=== PATIENT | female | born 1955 | race American Indian/Alaskan Native ===

== ENCOUNTER 2017-04-13 14:07 | Emergency (ER) | payer OTHER ==
[2017-04-13] MEDS ORDERED: TYLENOL PO ONE (14:37)
[2017-04-13 15:03] LABS: Basophils % (Auto) 0.8 % (0.0-1.8); Eosinophils % (Auto) 4.4 % (0.0-4.3); Hematocrit 47.4 % (30.3-42.9); Hemoglobin 15.8 gm/dl (10.1-14.3); Mean Corpuscular HGB Conc 33 % (30-34); Mean Corpuscular Hemoglobin 30 pg (28-32); Mean Corpuscular Volume 88 fl (79-97); Platelet Count 250 K/mm3 (140-440); Red Blood Count 5.36 M/mm3 (3.65-5.03); Red Cell Distribution Width 13.4 % (13.2-15.2); White Blood Count 9.6 K/mm3 (4.5-11.0)
[2017-04-13 15:21] LABS: Anion Gap 14 mmol/L; BUN/Creatinine Ratio 14.28; Blood Urea Nitrogen 10 mg/dL (7-17); Calcium 9.8 mg/dL (8.4-10.2); Carbon Dioxide 30 mmol/L (22-30); Chloride 100.8 mmol/L (98-107); Glucose 106 mg/dL (65-100); Potassium 4.3 mmol/L (3.6-5.0); Sodium 140 mmol/L (137-145)
--- NOTE | 2017-04-13 18:21 | Cat Scan Report ---
FINAL REPORT EXAM: CT HEAD/BRAIN WO CON HISTORY: severe left side headache TECHNIQUE: Standard unenhanced CT of the head at 5.0 millimeter axial increments PRIORS: None. FINDINGS: The ventricular system is normal in size and configuration. There is no evidence for parenchymal volume loss. There is no evidence for mass lesion, mass effect, midline shift, acute intracranial hemorrhage, or acute ischemia/ infarction. Visualized paranasal sinuses demonstrates mucosal thickening in the right maxillary and several bilateral ethmoid air cells. IMPRESSION: Negative CT of the head. No acute intracranial process noted. Mild chronic sinusitis in the right maxillary and ethmoid air cells.
--- NOTE | 2017-04-13 23:56 | Emergency Department Report ---
HPI - General Chief Complaint: Headache Time Seen by Provider: 04/13/17 23:39 - HPI HPI: Room 9 The patient is a 62-year-old female presenting with a chief complaint of headache. The patient states she awakened this morning at 02:00 with severe headache in the left and poor region. Patient describes the headache as pounding in nature. The patient went to see her primary physician (Dr. Bernice walls) 1 turn sent the patient to the ED for a CAT scan and evaluation. Patient denies nausea vomiting or preceding trauma. Patient denies eye pain or blurred vision. The patient states her headache was initially a 10/10 but has improved with 3-4/10 currently. Location: Head Duration: Constant since 02:00 Quality: Throbbing Severity: 3-4/10 Modifying factors: [see above] Context: [see above] Mode of transportation: Public transportation/walking ED Past Medical Hx - Past Medical History Previous Medical History?: No Hx Asthma: Yes - Surgical History Past Surgical History?: No Additional Surgical History: Rhinoplasty, bilateral tubal ligation - Family History Family history: no significant - Social History Smoking Status: Never Smoker Substance Use Type: None - Medications Home Medications: Home Medications Medication Instructions Recorded Confirmed Last Taken Type Butalbit/Acetamin/Caff/Codeine 1 cap PO Q8HR PRN #14 cap 04/13/17 Unknown Rx [Fioricet/Codeine [id number]] ED Review of Systems ROS: Stated complaint: SEVERE L SIDE HEADACHE/PAIN Other details as noted in HPI Comment: All other systems reviewed and negative Constitutional: denies: chills, fever Eyes: denies: eye pain, eye discharge, vision change ENT: denies: ear pain, throat pain Respiratory: denies: cough, shortness of breath, wheezing Cardiovascular: denies: chest pain, palpitations Endocrine: no symptoms reported Gastrointestinal: denies: abdominal pain, nausea, diarrhea Genitourinary: denies: urgency, dysuria, discharge Musculoskeletal: denies: back pain, joint swelling, arthralgia Skin: denies: rash, lesions Neurological: headache Psychiatric: denies: anxiety, depression Hematological/Lymphatic: denies: easy bleeding, easy bruising Physical Exam - Physical Exam Vital Signs: Vital Signs 04/13/17 04/13/17 14:33 23:43 Temperature 98.4 F 98.8 F Pulse Rate 88 89 Respiratory 20 19 Rate Blood Pressure 147/96 Blood Pressure 183/101 [Left] O2 Sat by Pulse 100 99 Oximetry Physical Exam: GENERAL: The patient is well-developed well-nourished female lying on stretcher not appear to be in acute distress. [] HEENT: Normocephalic. Atraumatic. Extraocular motions are intact. Patient has moist mucous membranes. There is no tenderness to palpation along the left temporal artery NECK: Supple. Trachea midline. There are no meningitic signs CHEST/LUNGS: Clear to auscultation. There is no respiratory distress noted. HEART/CARDIOVASCULAR: Regular. There is no tachycardia. There is no gallop rub or murmur. ABDOMEN: Abdomen is soft, nontender. Patient has normal bowel sounds. There is no abdominal distention. SKIN: There is no rash. There is no edema. There is no diaphoresis. NEURO: The patient is awake, alert, and oriented. The patient is cooperative. The patient has no focal neurologic deficits. The patient has normal speech and gait. Radial nerves II through XII grossly intact, no drift, net developer contract 5+/5 bilaterally. Negative Romberg MUSCULOSKELETAL: There is no evidence of acute injury. ED Course Vital Signs 04/13/17 04/13/17 14:33 23:43 Temperature 98.4 F 98.8 F Pulse Rate 88 89 Respiratory 20 19 Rate Blood Pressure 147/96 Blood Pressure 183/101 [Left] O2 Sat by Pulse 100 99 Oximetry ED Medical Decision Making - Lab Data Result diagrams: 04/13/17 14:43 04/13/17 14:43 Laboratory Tests 04/13/17 04/13/17 04/13/17 14:43 14:43 14:43 WBC 9.6 RBC 5.36 H Hgb 15.8 H Hct 47.4 H MCV 88 MCH 30 MCHC 33 RDW 13.4 Plt Count 250 Lymph % (Auto) 28.7 [place] % (Auto) 8.3 H Eos % (Auto) 4.4 H Baso % (Auto) 0.8 Lymph # 2.8 [place] # 0.8 Eos # 0.4 Baso # 0.1 Seg Neutrophils % 57.8 Seg Neutrophils # 5.5 ESR 1 Sodium 140 Potassium 4.3 Chloride 100.8 Carbon Dioxide 30 Anion Gap 14 BUN 10 Creatinine 0.7 Estimated GFR > 60 BUN/Creatinine Ratio 14.28 Glucose 106 H Calcium 9.8 - Radiology Data Radiology results: image reviewed (CT head) interpreted by me: CT head (read by radiologist)-negative CT of the head. No acute intracranial process noted. - Differential Diagnosis ICH, intracranial mass, temporal arteritis, migraine Critical care attestation.: If time is entered above; I have spent that time in minutes in the direct care of this critically ill patient, excluding procedure time. ED Disposition Clinical Impression: Headache Disposition: DISCHARGED TO HOME OR SELFCARE Is pt being admited?: No Does the pt Need Aspirin: No Condition: Stable Instructions: Acute Headache (ED) Additional Instructions: Return to the emergency department immediately should you develop worsening symptoms, fever, inability to tolerate food or liquid or any other concerns. Prescriptions: Butalbit/Acetamin/Caff/Codeine [Fioricet/Codeine [id number]] 1 cap PO Q8HR PRN #14 cap PRN Reason: Headache Referrals: MIRTA MARIA MD [Primary Care Provider] - 3-5 Days GLENROY MULLEN MD [Staff Physician] - [facility] (Dr Mullen is a neurologist. Please follow with him for further evaluation of her headache) Time of Disposition: 00:25
[2017-04-14 01:26] VITALS: BP 175/94
== END 2017-04-14 01:25 | disposition home or self-care (01) ==
LOC: ED 14:07
DX: R51 Headache (principal); J45.909 Unspecified asthma, uncomplicated
CPT/HCPCS: 36415; 70450; 80048; 85025; 85652; 99284

== ENCOUNTER 2018-02-12 14:22 | Inpatient (IN) | payer OTHER ==
--- NOTE | 2018-02-12 15:10 | Emergency Department Report ---
HPI - General Time Seen by Provider: 02/12/18 14:38 - HPI HPI: 63-year-old female presents to the emergency department via EMS from a nearby pharmacy with complaint of shortness of breath and severe tachycardia. The patient was driving home when she suddenly began feeling acutely short of breath and lightheaded. She felt like she was going to pass out but was able to get to the local [facility] parking lot where she called EMS. EMS found her to be in some type of tachyarrhythmia. They tried 6 monos of adenosine without any relief just prior to arriving at [facility]. Patient has a history of COPD but is not oxygen dependent, non-insulin- dependent diabetes, hypertension. Her fur cleaner also serves as her primary care physician and is a Dr. Freed. She denies any tobacco or illicit drug use or abuse. No recent travel or sick contacts at home. ED Past Medical Hx - Past Medical History Previous Medical History?: Yes Hx Asthma: Yes - Surgical History Past Surgical History?: Yes Additional Surgical History: Rhinoplasty, bilateral tubal ligation - Social History Smoking Status: Never Smoker - Medications Home Medications: Home Medications Medication Instructions Recorded Confirmed Last Taken Type Butalbit/Acetamin/Caff/Codeine 1 cap PO Q8HR PRN #14 cap 04/13/17 Unknown Rx [Fioricet/Codeine [id number]] ED Review of Systems ROS: Stated complaint: HEART RATE Other details as noted in HPI Comment: All other systems reviewed and negative Constitutional: denies: chills, fever Eyes: denies: eye pain, eye discharge, vision change ENT: denies: ear pain, throat pain Respiratory: shortness of breath, wheezing Cardiovascular: chest pain, palpitations Gastrointestinal: denies: abdominal pain, nausea, diarrhea Genitourinary: denies: urgency, dysuria, discharge Musculoskeletal: denies: back pain, joint swelling, arthralgia Skin: denies: rash, lesions Neurological: denies: headache, weakness, paresthesias Physical Exam - Physical Exam Vital Signs: Vital Signs 02/12/18 02/12/18 02/12/18 14:30 14:34 14:45 Pulse Rate 200 H 118 H Respiratory 24 24 19 Rate Blood Pressure 121/74 O2 Sat by Pulse 88 Oximetry Physical Exam: GENERAL: Patient is ill-appearing. HENT: Normocephalic. Atraumatic. Patient has moist mucous membranes. EYES: Extraocular motions are intact. Pupils equal reactive to light bilaterally. NECK: Supple. Trachea is midline. CHEST/LUNGS: There is some mild wheezing throughout the chest. The patient has tachypnea but no accessory muscle use. There is no respiratory distress noted. HEART/CARDIOVASCULAR: Regular. There is severe tachycardia. There is no murmur. ABDOMEN: Abdomen is soft, nontender. Patient has normal bowel sounds. There is no abdominal distention. SKIN: Skin is warm and dry. NEURO: The patient is awake, alert, and oriented. The patient is cooperative. The patient has no focal neurologic deficits. The patient has normal speech. MUSCULOSKELETAL: There is no tenderness or deformity. There is no limitation range of motion. There is no evidence of acute injury. ED Course Vital Signs 02/12/18 02/12/18 02/12/18 14:30 14:34 14:45 Pulse Rate 200 H 118 H Respiratory 24 24 19 Rate Blood Pressure 121/74 O2 Sat by Pulse 88 Oximetry - Consultations Consultation #1: 02/12/18 15:[address] Calvert, fur cleaner for [facility], who is aware of the patient's presentation for SVT and has agreed to see the patient as a consultation. ED Medical Decision Making - Lab Data Result diagrams: 02/12/18 14:45 02/12/18 14:45 - EKG Data -: EKG Interpreted by Me EKG shows normal: sinus rhythm (SVT with PVCs), axis, intervals, QRS complexes, ST-T waves (there is some ST depression throughout the majority of the leads concerning for some ischemia) Rate: tachycardia (191 bpm) - EKG Data When compared to previous EKG there are: previous EKG unavailable Interpretation: other (SVT at 191 bpm, normal axis, normal intervals, some ST depressions diffusely) Repeat EKG after vagal maneuvers show sinus tachycardia at 120 bpm, normal axis , PVCs and resolution of the ST depressions 02/12/18 15:09 - Radiology Data Radiology results: image reviewed interpreted by me: Chest x-ray shows some hyperinflation of the lungs and flattening of the diaphragms but no obvious pneumonia and no pleural effusions. - Medical Decision Making Patient presented with a tachyarrhythmia, shortness of breath and some lightheadedness. She was found to have a heart rate of about 200. It appeared more consistent with SVT than A. fib with RVR. We were going to attempt giving adenosine had to get a better IV in the upper arm. As the patient was stuck for peripheral IV placement, she appeared to bear down secondary to the pain and acted as a vagal maneuver and the patient's heart rate went down to about 120-130. A repeat EKG at this time showed sinus tachycardia and there was resolution of the ST depressions and/or ischemic-appearing changes that I believe were secondary to the severe tachycardia. Chest x-ray did not show any acute process. Labs of this far been mostly unremarkable and do not show any etiology of her symptoms. Patient had some improvement in her condition after the rate control. Blood pressure came back up from the previous hypotension of systolic blood pressure of 87 when she was having the severe tachycardia. Patient is feeling slightly improved but still appears short of breath. First troponin negative. Negative d-dimer. Cardiology has been contacted. Patient has been presented to the hospitalist service, Dr Coronel, for possible admission. - Differential Diagnosis SVT, A-fib, MA, Hyperthyroid Critical Care Time: No Critical care attestation.: If time is entered above; I have spent that time in minutes in the direct care of this critically ill patient, excluding procedure time. ED Disposition Clinical Impression: SVT (supraventricular tachycardia), SOB (shortness of breath) Chest pain Qualifiers: Chest pain type: unspecified Qualified Code(s): R07.9 - Chest pain, unspecified COPD (chronic obstructive pulmonary disease) Qualifiers: COPD type: unspecified COPD Qualified Code(s): J44.9 - Chronic obstructive pulmonary disease, unspecified Disposition: OP ADMIT IP TO THIS HOSP Is pt being admited?: Yes Condition: Fair Instructions: Chest Pain (ED), Chronic Obstructive Pulmonary Disease (ED) Referrals: PRIMARY CARE, [Primary Care Provider] - 3-5 Days Time of Disposition: 16:02
[2018-02-12 15:15] LABS: Basophils % (Auto) 0.4 % (0.0-1.8); Eosinophils # (Auto) 0.2 K/mm3 (0.0-0.4); Eosinophils % (Auto) 2.9 % (0.0-4.3); Hematocrit 47.4 % (30.3-42.9); Hemoglobin 15.5 gm/dl (10.1-14.3); Lymphocytes # (Auto) 1.7 K/mm3 (1.2-5.4); Lymphocytes % (Auto) 20.7 % (13.4-35.0); Mean Corpuscular HGB Conc 33 % (30-34); Mean Corpuscular Hemoglobin 29 pg (28-32); Mean Corpuscular Volume 90 fl (79-97); Monocytes # (Auto) 0.6 K/mm3 (0.0-0.8); Monocytes % (Auto) 6.8 % (0.0-7.3); Platelet Count 238 K/mm3 (140-440); Red Blood Count 5.26 M/mm3 (3.65-5.03); Red Cell Distribution Width 13.5 % (13.2-15.2)
[2018-02-12 15:25] LABS: INR 0.93 (0.87-1.13)
--- NOTE | 2018-02-12 15:27 | XRay Report ---
AP CHEST: HISTORY: chest pain The lungs are hyperinflated but clear. No evidence for infiltrate, pleural effusion or pneumothorax. Normal heart and mediastinal structures. Normal bony thorax. IMPRESSION: Hyperinflated lungs. No acute process identified.
[2018-02-12 15:30] LABS: Alanine Aminotransferase 13 units/L (7-56); BUN/Creatinine Ratio 10; Blood Urea Nitrogen 10 mg/dL (7-17); Calcium 9.6 mg/dL (8.4-10.2); Hemolysis Index 16
--- NOTE | 2018-02-12 15:55 | Consultation ---
History of Present Illness Consult date: 02/12/18 Consult reason: arrhythmia History of present illness: The patient is a 63-year-old female known to our service who sees Dr. Freed. She has a history of asthma, diabetes, and stress cardiomyopathy. She was admitted to [facility] in October 2017 where her ejection fraction was 20-25% and her coronary arteries were normal on invasive angiography. 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 An echocardiogram in November 2017 demonstrated normalization of her LV function with an ejection fraction of 50-55%. There was mild to moderate mitral regurgitation. The patient presented to the emergency department with palpitations and was noted to be in supraventricular tachycardia. She was short of breath but states that she is chronically dyspneic and was not more so at this time. No chest pain diaphoresis or palpitations. While inserting an IV the patient converted to sinus tachycardia at a rate of 110 bpm. At the time of this evaluation she remains in sinus rhythm at 112 bpm and is in no distress. Past History Past Medical History: diabetes, other (asthma, stress cardiomyopathy) Past Surgical History: Other (rhinoplasty, tuboligation) Social history: denies: smoking, alcohol abuse Family history: hypertension Medications and Allergies Allergies Allergy/AdvReac Type Severity Reaction Status Date / Time latex Allergy Hives Verified 04/13/17 14:33 Penicillins Allergy Hives Verified 04/13/17 14:31 cephalexin monohydrate AdvReac Angioedema Verified 04/13/17 14:31 [From Keflex] Sulfa (Sulfonamide AdvReac Anaphylaxis Verified 04/13/17 14:31 Antibiotics) iv dye AdvReac Hives Uncoded 04/13/17 14:31 Home Medications Medication Instructions Recorded Confirmed Last Taken Type Aspirin [Aspirin EC] 81 mg PO DAILY 02/12/18 02/12/18 02/12/18 History AtorvaSTATin [Lipitor] 40 mg PO QHS 02/12/18 02/12/18 02/11/18 History Benzonatate [Tessalon Perles] 100 mg PO Q8HR 02/12/18 02/12/18 02/11/18 History Fluticasone/Salmeterol [Advair 1 each IH PRN 02/12/18 02/12/18 02/11/18 History 250-50 Diskus] Furosemide [Lasix TAB] 40 mg PO QDAY 02/12/18 02/12/18 02/11/18 History Potassium Chloride [K-Dur] 20 meq PO QDAY 02/12/18 02/12/18 02/11/18 History predniSONE [Deltasone] 40 mg PO QDAY 02/12/18 02/12/18 02/11/18 History Review of Systems Constitutional: no fever, no chills Eyes: bilateral: blurred vision (denies) Ears, nose, mouth and throat: no epistaxis Cardiovascular: no chest pain, no syncope Respiratory: no hemoptysis Gastrointestinal: no abdominal pain Genitourinary Female: no flank pain Musculoskeletal: no frequent falls Integumentary: no rash Neurological: no convulsions Psychiatric: no anxiety Endocrine: no cold intolerance, no heat intolerance Hematologic/Lymphatic: no easy bruising, no easy bleeding Allergic/Immunologic: no urticaria Physical Examination Vital Signs Pulse Resp 200 H 24 02/12/18 14:30 02/12/18 14:30 General appearance: no acute distress HEENT: Positive: PERRL, Normocephaly Neck: Positive: neck supple, Carotid Upstroke (2+ bilat). Negative: JVD/HJR, Bruit Cardiac: Positive: Reg Rate and Rhythm, Systolic Murmur (2/6 apical). Negative : S3 Lungs: Positive: clear to auscultation Neuro: Positive: Grossly Intact Abdomen: Positive: Soft. Negative: Tender Skin: Positive: Clear Musculoskeletal: Normal Range of Motion Extremities: Present: normal Results 02/12/18 14:45 02/12/18 14:45 Cardiac Enzymes 02/12/18 Range/Units 14:45 AST 16 (5-40) units/L Coagulation 02/12/18 Range/Units 14:45 PT 12.9 (12.2-14.9) Sec. INR 0.93 (0.87-1.13) CBC 02/12/18 Range/Units 14:45 WBC 8.3 (4.5-11.0) K/mm3 RBC 5.26 H (3.65-5.03) M/mm3 Hgb 15.5 H (10.1-14.3) gm/dl Hct 47.4 H (30.3-42.9) % Plt Count 238 (140-440) K/mm3 Lymph # 1.7 (1.2-5.4) K/mm3 [place] # 0.6 (0.0-0.8) K/mm3 Eos # 0.2 (0.0-0.4) K/mm3 Baso # 0.0 (0.0-0.1) K/mm3 Comprehensive Metabolic Panel 02/12/18 Range/Units 14:45 Sodium 141 (137-145) mmol/L Potassium 3.8 (3.6-5.0) mmol/L Chloride 102.2 (98-107) mmol/L Carbon Dioxide 24 (22-30) mmol/L BUN 10 (7-17) mg/dL Creatinine 1.0 (0.7-1.2) mg/dL Glucose 142 H (65-100) mg/dL Calcium 9.6 (8.4-10.2) mg/dL AST 16 (5-40) units/L ALT 13 (7-56) units/L Alkaline Phosphatase 85 (35-129) units/L Total Protein 6.4 (6.3-8.2) g/dL Albumin 4.0 (3.9-5) g/dL EKG interpretations - Telemetry EKG Rhythm: Sinus Tachycardia Assessment and Plan Supraventricular tachycardia which converted to sinus tachycardia. Patient in no distress at the present time. Initial set of cardiac enzymes is negative. The d-dimer was negative. A 12-lead electrocardiogram is pending. Patient has a history of diabetes and asthma. She is chronically but mildly short of breath which is not worse at this time. Agree with hospitalization for telemetry observation. Since she recently had an echocardiogram in November of this year which was essentially unremarkable I do not feel a repeat study is necessary. Will follow with you.
--- NOTE | 2018-02-12 18:00 | History and Physical Report ---
History of Present Illness Chief complaint: I felt short of breath, and my heart was beating fast History of present illness: 63 YO Female with Asthma, COPD, DM, HTN, Cardiomyopathy presents to ED for evaluation. Pt states that she experienced a sudden onset of shortness of breath , and rapid heart beat, as well as dizziness and lightheadedness. The patient states that she was driving home in her car when she experienced the aforementioned symptoms. [facility] Upon EMS arrival, the patient was found to have SVT and acute respiratory failure. Pt was treated with adenosine, and was transported to [facility] for further care and evaluation. Pt seen and evaluated in ED and found to have COPD exacerbation and acute respiratory failure. Cardiology consulted in ED. Pt treated with supportive care and admitted to telemetry. Pt denies fever, chills , CP, NVD, Trauma, unintentional weight loss, night sweats, bone pain, BRBPR, hematuria, skin rash, or bowel habit changes. Past History Past Medical History: COPD, diabetes, hypertension, other (asthma, stress cardiomyopathy) Past Surgical History: Other (Rhinoplasty, Tubal ligation') Social history: denies: smoking, alcohol abuse Family history: hypertension Medications and Allergies Allergies Allergy/AdvReac Type Severity Reaction Status Date / Time latex Allergy Hives Verified 04/13/17 14:33 Penicillins Allergy Hives Verified 04/13/17 14:31 cephalexin monohydrate AdvReac Angioedema Verified 04/13/17 14:31 [From Keflex] Sulfa (Sulfonamide AdvReac Anaphylaxis Verified 04/13/17 14:31 Antibiotics) iv dye AdvReac Hives Uncoded 04/13/17 14:31 Home Medications Medication Instructions Recorded Confirmed Last Taken Type Aspirin [Aspirin EC] 81 mg PO DAILY 02/12/18 02/12/18 02/12/18 History AtorvaSTATin [Lipitor] 40 mg PO QHS 02/12/18 02/12/18 02/11/18 History Benzonatate [Tessalon Perles] 100 mg PO Q8HR 02/12/18 02/12/18 02/11/18 History Fluticasone/Salmeterol [Advair 1 each IH PRN 02/12/18 02/12/18 02/11/18 History 250-50 Diskus] Furosemide [Lasix TAB] 40 mg PO QDAY 02/12/18 02/12/18 02/11/18 History Potassium Chloride [K-Dur] 20 meq PO QDAY 02/12/18 02/12/18 02/11/18 History predniSONE [Deltasone] 40 mg PO QDAY 02/12/18 02/12/18 02/11/18 History Review of Systems Constitutional: no weight loss, no weight gain, no fever, no chills Ears, nose, mouth and throat: no ear pain, no ear discharge, no tinnitis, no decreased hearing, no nose pain, no nasal congestion, no nasal discharge Breasts: no change in shape, no swelling, no mass Cardiovascular: palpitations, rapid/irregular heart beat, lightheadedness, shortness of breath, no chest pain, no edema, no syncope Respiratory: no cough, no cough with sputum, no excessive sputum, no hemoptysis Gastrointestinal: no nausea, no vomiting, no diarrhea, no constipation, no hematemesis Genitourinary Female: no pelvic pain, no flank pain, no menorrhagia, no dysuria , no urinary frequency, no urgency Rectal: no pain, no incontinence, no bleeding Musculoskeletal: no neck stiffness, no neck pain, no shooting arm pain, no arm numbness/tingling Integumentary: no rash, no pruritis, no redness, no sores, no wounds, no jaundice Neurological: no head injury, no transient paralysis, no paralysis, no weakness , no parathesias, no numbness, no tingling Psychiatric: no anxiety, no memory loss, no change in sleep habits, no sleep disturbances, no insomnia, no hypersomnia, no change in appetite, no change in libido Endocrine: no cold intolerance, no heat intolerance, no polyphagia, no excessive thirst, no polydipsia, no polyuria, no nocturia, no excessive sweating Hematologic/Lymphatic: no easy bruising, no easy bleeding, no lymphadenopathy, no lymphedema Allergic/Immunologic: no urticaria, no allergic rhinitis, no persistent infections, no anaphylaxis, no angioedema Exam - Constitutional Vitals: Temp Pulse Resp BP Pulse Ox 98.8 F 88 19 139/83 98 02/12/18 15:13 02/12/18 17:00 02/12/18 17:00 02/12/18 17:00 02/12/18 17:00 General appearance: Present: mild distress, cachectic - EENT Eyes: Present: PERRL ENT: hearing intact, clear oral mucosa - Neck Neck: Present: supple, normal ROM - Respiratory Respiratory effort: normal Respiratory: bilateral: diminished, rhonchi - Cardiovascular Rhythm: other (tachycardia) - Extremities Extremities: pulses symmetrical, No edema Peripheral Pulses: within normal limits - Abdominal General gastrointestinal: Present: soft, non-tender, non-distended, normal bowel sounds Female genitourinary: Present: normal - Integumentary Integumentary: Present: clear, warm, dry - Musculoskeletal Musculoskeletal: gait normal, strength equal bilaterally - Psychiatric Psychiatric: appropriate mood/affect, intact judgment & insight - Neurologic Neurologic: CNII-XII intact, moves all extremities Results - Labs CBC & Chem 7: 02/12/18 14:45 02/12/18 14:45 Labs: Abnormal lab results 02/12/18 02/12/18 Range/Units 14:45 14:45 RBC 5.26 H (3.65-5.03) M/mm3 Hgb 15.5 H (10.1-14.3) gm/dl Hct 47.4 H (30.3-42.9) % Glucose 142 H (65-100) mg/dL Total Bilirubin 1.70 H (0.1-1.2) mg/dL Assessment and Plan - Patient Problems (1) Acute respiratory failure Current Visit: Yes Status: Acute Qualifiers: Respiratory failure complication: hypoxia Qualified Code(s): J96.01 - Acute respiratory failure with hypoxia Plan to address problem: D dimer, supplemental oxygen, nebulizer therpay, NIPPV as clinically indicated, Chest X ray, treat SVT, (2) COPD (chronic obstructive pulmonary disease) Current Visit: Yes Status: Acute Qualifiers: COPD type: unspecified COPD Qualified Code(s): J44.9 - Chronic obstructive pulmonary disease, unspecified Plan to address problem: Supplemental oxygen, nubulizer therapy, IV steroids, supportive care. (3) SVT (supraventricular tachycardia) Current Visit: Yes Status: Acute Plan to address problem: CArdiology consulted, Medical cardioversion with adenosine, admit to telemetry, (4) DVT prophylaxis Current Visit: Yes Status: Acute (5) Diabetes Current Visit: Yes Status: Acute Plan to address problem: consistent carbohydrate diet, insulin, acccu check
[2018-02-12] MEDS ORDERED: TYLENOL PO PRN (18:04)
[2018-02-12] MEDS ORDERED: SODIUM CHLORIDE FLUSH SYRINGE 10 ML IV PRN (18:04)
[2018-02-12] MEDS ORDERED: ZOFRAN IV PRN (18:04)
[2018-02-12] MEDS ORDERED: PROVENTIL IH PRN (18:04)
[2018-02-12] MEDS ORDERED: NON-FORMULARY (Fluticasone/Salmeterol [Advair 250-50 Diskus] 1 EACH) IH SCH (18:30)
[2018-02-12] MEDS ORDERED: SODIUM CHLORIDE FLUSH SYRINGE 10 ML IV SCH (22:00)
[2018-02-12] MEDS: PEPCID PO SCH (22:56)
[2018-02-12] MEDS: TESSALON PERLES PO SCH (22:56)
[2018-02-13] MEDS: TESSALON PERLES PO SCH (05:17)
[2018-02-13] MEDS: BROVANA NEBU IH SCH ×2 (08:00→09:47)
[2018-02-13] MEDS: PULMICORT IH SCH ×2 (08:00→09:47)
[2018-02-13] MEDS ORDERED: D50W (25GM) Syringe IV PRN (09:30)
--- NOTE | 2018-02-13 09:31 | Progress Note ---
Assessment and Plan Assessment: Transient SVT --> converted to SR without intervention H/o asthma H/o Takotsubo cardiomyopathy DM Plan: Currently stable cardiac status. Pt was observed on telemetry overnight and remained in SR with no arrhythmias noted. DDimer WNL, Meri negative for AMI, TSH WNL, ECG with no acute ischemic changes. Pt may discharge home from cardiology standpoint. Cont home cardiac regimen. Follow up in our office with Dr. Freed on 02/26/2018 @ 9:15AM. Assessment and plan reviewed with pt at bedside. The patient has been seen in conjunction with Dr. Calvert who agrees with the assessment and plan of care. Subjective Date of service: 02/13/18 Principal diagnosis: SVT Interval history: pt resting comfortably in bed, no current cardiac complaints. tele reviewed - pt remained in SR overnight with no arrhythmias noted. Objective Last Vital Signs Temp 98.2 F 02/13/18 04:28 Pulse 84 02/13/18 04:29 Resp 18 02/13/18 04:28 BP 105/65 02/13/18 04:28 Pulse Ox 95 02/13/18 04:29 - Physical Examination General: No Apparent Distress HEENT: Positive: PERRL, Normocephaly Neck: Positive: neck supple, Carotid Upstroke (2+ bilat). Negative: JVD/HJR, Bruit Cardiac: Positive: Reg Rate and Rhythm, S1/S2 Lungs: Positive: clear to auscultation Neuro: Positive: Grossly Intact Abdomen: Positive: Soft. Negative: Tender Skin: Positive: Clear Musculoskeletal: Normal Range of Motion Extremities: Present: normal - Labs and Meds Cardiac Enzymes 02/12/18 Range/Units 14:45 AST 16 (5-40) units/L Coagulation 02/12/18 Range/Units 14:45 PT 12.9 (12.2-14.9) Sec. INR 0.93 (0.87-1.13) CBC 02/12/18 Range/Units 14:45 WBC 8.3 (4.5-11.0) K/mm3 RBC 5.26 H (3.65-5.03) M/mm3 Hgb 15.5 H (10.1-14.3) gm/dl Hct 47.4 H (30.3-42.9) % Plt Count 238 (140-440) K/mm3 Lymph # 1.7 (1.2-5.4) K/mm3 Stark # 0.6 (0.0-0.8) K/mm3 Eos # 0.2 (0.0-0.4) K/mm3 Baso # 0.0 (0.0-0.1) K/mm3 Comprehensive Metabolic Panel 02/12/18 Range/Units 14:45 Sodium 141 (137-145) mmol/L Potassium 3.8 (3.6-5.0) mmol/L Chloride 102.2 (98-107) mmol/L Carbon Dioxide 24 (22-30) mmol/L BUN 10 (7-17) mg/dL Creatinine 1.0 (0.7-1.2) mg/dL Glucose 142 H (65-100) mg/dL Calcium 9.6 (8.4-10.2) mg/dL AST 16 (5-40) units/L ALT 13 (7-56) units/L Alkaline Phosphatase 85 (35-129) units/L Total Protein 6.4 (6.3-8.2) g/dL Albumin 4.0 (3.9-5) g/dL - Imaging and Cardiology Echo: report reviewed (10/2017: EF 50-55%, impaired relaxation, nild to mod MR, mild TN) - Telemetry EKG Rhythm: Sinus Rhythm
[2018-02-13] MEDS ORDERED: K-DUR PO SCH (10:00)
[2018-02-13] MEDS ORDERED: HALFPRIN EC PO SCH (10:00)
[2018-02-13] MEDS ORDERED: DELTASONE PO SCH (10:00)
[2018-02-13] MEDS ORDERED: LASIX PO SCH (10:00)
[2018-02-13] MEDS: PEPCID PO SCH (10:26)
[2018-02-13 10:28] VITALS: BP 131/76
[2018-02-13] MEDS ORDERED: HumaLOG SUB-Q SCH (11:30)
--- NOTE | 2018-02-13 14:26 | Discharge Summary ---
Providers - Providers Date of Admission: 02/12/18 18:04 Attending physician: DAVIDA EASTMAN 02/12/18 15:38 Consult to Cardiology [CONS] Routine Consulting Provider: CURLY WASHINGTON Reason For Exam: SVT, SOB Primary care physician: DAVIDA MONTESINOS Hospitalization Condition: Fair Disposition: DC-30 STILL A PATIENT Core Measure Documentation - Palliative Care Palliative Care/ Comfort Measures: Not Applicable - Core Measures Any of the following diagnoses?: none Exam - Constitutional Vitals: Temp Pulse Resp BP Pulse Ox 98.2 F 76 16 131/76 96 02/13/18 09:43 02/13/18 09:43 02/13/18 09:43 02/13/18 09:43 02/13/18 09:50 General appearance: Present: no acute distress, well-nourished - EENT Eyes: Present: PERRL ENT: hearing intact, clear oral mucosa - Neck Neck: Present: supple, normal ROM - Respiratory Respiratory effort: normal Respiratory: bilateral: CTA - Cardiovascular Heart Sounds: Present: S1 & S2. Absent: rub, click - Extremities Extremities: pulses symmetrical, No edema Peripheral Pulses: within normal limits - Abdominal General gastrointestinal: Present: soft, non-tender, non-distended, normal bowel sounds Female genitourinary: Present: normal - Integumentary Integumentary: Present: clear, warm, dry - Musculoskeletal Musculoskeletal: gait normal, strength equal bilaterally - Psychiatric Psychiatric: appropriate mood/affect, intact judgment & insight - Neurologic Neurologic: CNII-XII intact, moves all extremities Plan Activity: no restrictions, advance as tolerated Diet: low fat, low cholesterol, low salt Follow up with: DANIEL EVANS MD [Referring] - 3-5 Days TIMMY MELARA MD [Staff Physician] - 02/26/18 9:15 am Forms: Work/School Release Form
== END 2018-02-13 18:55 | disposition home or self-care (01) | DRG 189 ==
LOC: ED 14:22 → 4A 18:04
PROVIDERS: ADMIT Internal Medicine; ATTEND Internal Medicine
DX: J96.00 Acute respiratory failure, unspecified whether with hypoxia or hypercapnia (principal); I47.1 Supraventricular tachycardia; J44.1 Chronic obstructive pulmonary disease with (acute) exacerbation; I51.81 Takotsubo syndrome; E11.9 Type 2 diabetes mellitus without complications; I10 Essential (primary) hypertension; Z98.51 Tubal ligation status; Z82.49 Family history of ischemic heart disease and other diseases of the circulatory system; Z88.0 Allergy status to penicillin; Z88.2 Allergy status to sulfonamides; Z91.041 Radiographic dye allergy status; Z91.040 Latex allergy status; Z88.6 Allergy status to analgesic agent
CPT/HCPCS: 36415; 71045; 80053; 82962; 83036; 83880; 84443; 84484; 85025; 85379; 85610; 85730; 93005; 93010; A9270-GY; J0153; J2920

== ENCOUNTER 2018-09-10 11:52 | Outpatient (CLI) | payer OTHER ==
[2018-09-10] MEDS ORDERED: XOPENEX IH ONE (12:47)
[2018-09-10] MEDS ORDERED: LEVALBUTEROL IH ONE (13:00)
== END 2018-09-10 11:53 | disposition home or self-care (01) ==
LOC: PF 11:52
PROVIDERS: ATTEND Internal Medicine
DX: Z02.71 Encounter for disability determination (principal); J44.9 Chronic obstructive pulmonary disease, unspecified; E11.9 Type 2 diabetes mellitus without complications
CPT/HCPCS: 94060; 94644; 94729